=== PATIENT | male | born 2000 | race Caucasian/White ===

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

== ENCOUNTER 2021-12-17 22:55 | Emergency (ER) | payer MEDICAID ==
[~2021-12-17] VITALS: Ht 185.4 cm; Wt 84.3 kg
--- NOTE | 2021-12-18 00:08 | ED Lower Extremity ---
General Chief Complaint: Lower Extremity Stated Complaint: R ANKLE INJ Nursing Triage Note: PATIENT STATES THAT HE WAS DRINKING ON A ROOF AND BEGAN TO FALL SO HE DECIDED TO JUMP AND "LANDED WRONG". PT C/O OF RIGHT ANKLE PAIN AND SWELLING. Source: patient Exam Limitations: no limitations History of Present Illness Date Seen by Provider: Dec 17, 2021 Time Seen by Provider: 23:40 Initial Comments Patient to the ER by private conveyance with chief complaint of pain on the posterior portion of the medial malleolus of his right ankle after jumping off a roof while at a constitution party that he describes as getting a little out of hand. He is having pain with bearing weight but was able to get in using a broom pole. He has had work on his right foot before by Dr. Reeves, podiatry. He is not having any numbness or tingling. He has range of motion. He is not having pain in his Achilles tendon. Allergies and Home Medications Allergies Coded Allergies: No Known Drug Allergies (Unverified , 07/21/11) Patient Home Medication List Home Medication List Reviewed: Yes Hydrocodone Bit/Acetaminophen (HYDROcodone/APAP 5 MG/325 MG TAB) 1 Tab Tab, 1 TAB PO Q6H PRN for PAIN-MODERATE (5-7) Prescribed by: CHUCHO MODI on 12/09/20 0903 Review of Systems Constitutional: No chills, No fever EENTM: No ear discharge, No ear pain Respiratory: No cough, No short of breath Cardiovascular: No chest pain, No edema Gastrointestinal: No abdominal pain, No nausea, No vomiting Genitourinary: No discharge, No dysuria Musculoskeletal: No back pain, No joint pain All Other Systems Reviewed Negative Unless Noted: Yes Past Ofstaep-Drijvd-Rwtqof Hx Patient Social History Tobacco Use?: No Use of E-Cig and/or Vaping dev: No Immunizations Up To Date Tetanus Booster (TDap): Less than 5yrs PED Vaccines UTD: Yes Seasonal Allergies Seasonal Allergies: Yes Past Medical History Surgeries: No Respiratory: No Currently Using CPAP: No Currently Using BIPAP: No Cardiac: No Neurological: No Reproductive Disorders: No Sexually Transmitted Disease: No Genitourinary: No Gastrointestinal: Yes Gall Bladder Disease Musculoskeletal: No Endocrine: No HEENT: No Cancer: No Psychosocial: No Integumentary: No Blood Disorders: No Adverse Reaction/Blood Tranf: No Family Medical History No Pertinent Family Hx Physical Exam Vital Signs Vital Signs - First Documented 12/17/21 23:03 Temp 37.6 Pulse 118 Resp 22 B/P (MAP) 172/96 (121) Pulse Ox 98 O2 Delivery Room Air Capillary Refill : Less Than 3 Seconds Height, Weight, BMI Height: 6'0" Weight: 224lbs. 0oz. 101.232045yr; 24.00 BMI Method:Actual General Appearance: WD/WN, no apparent distress Neck: full range of motion, normal inspection Cardiovascular: normal peripheral pulses, regular rate, rhythm, no edema Respiratory: no respiratory distress, no accessory muscle use Ankles: left ankle non-tender, left ankle normal inspection; bilateral ankle normal range of motion; left ankle no evidence of injury; right ankle bone tenderness (Posterior portion of the lateral and medial malleolus tender to palpation. No deformity.), right ankle soft tissue tenderness, right ankle swelling (Small amount of bluish ecchymosis discoloration bilateral ankle) Feet: bilateral foot non-tender, bilateral foot normal inspection, bilateral foot normal range of motion Neurologic/Tendon: normal sensation, normal motor functions, normal tendon functions, responds to pain Neurologic/Psychiatric: alert, normal mood/affect, oriented x 3 Skin: normal color, warm/dry Progress/Results/Core Measures Results/Orders My Orders Orders - JACQUELINE FRANKEL Ankle, Right, 3 Views (12/17/21 23:07) Vital Signs/I&O 12/17/21 12/18/21 23:03 00:18 Temp 37.6 36.9 Pulse 118 89 Resp 22 20 B/P (MAP) 172/96 (121) 148/87 Pulse Ox 98 97 O2 Delivery Room Air Room Air Blood Pressure Mean: 121 Progress Progress Note : Time: 00:05 Progress Note Achilles tendon is intact and he has full range of motion of his ankle albeit painful. Crutches, elevation, ice, rest Diagnostic Imaging Diagonstic Imaging: Xray Plain Films/CT/US/NM/MRI: ankle (Right) Comments No acute osseous fracture on 3 view film [facility] [place] NAME: SITA RIZO MED REC#: [id number] PT STATUS: DEP ER : 2001 PHYSICIAN: JACQUELINE FRANKEL MD ADMIT DATE: 12/17/21/ER Signed Date of Exam:12/17/21 ANKLE, RIGHT, 3 VIEWS EXAM: ANKLE, RIGHT, 3 VIEWS INDICATION: Fall. Right ankle pain. COMPARISON: None. FINDINGS: No fracture or malalignment. Soft tissue shadows are unremarkable. IMPRESSION: Negative right ankle radiographs. Dictated by: Dictated on workstation # [id number] Dict: 12/18/21700 Trans: 12/18/21840 [facility] [id number] Interpreted by: RADHA GARCIA MD Electronically signed by: RADHA GARCIA MD 12/18/21840 Reviewed: Reviewed by Me Departure Impression Primary Impression: Right ankle sprain Qualified Codes: S93.401A - Sprain of unspecified ligament of right ankle, initial encounter Disposition: HOME, SELF-CARE Condition: Stable Departure-Patient Inst. Decision time for Depature: 00:07 Referrals: [facility] (PCP) Primary Care Physician MARGARITA REEVES DPM Patient Instructions: Ankle Sprain ED Add. Discharge Instructions: Use ice 20 minutes on every 2 hours for the first 2 to 3 days to reduce swelling and pain. Elevate your ankle while at rest. Compression with a neoprene sleeve or elastic bandage such as an Shreyas wrap will be helpful to reduce swelling and pain. Use the crutches for the first 1 to 2 weeks as necessary. You may bear weight on your right foot as tolerated Tylenol 1000 mg every 8 hours as needed for pain. Ibuprofen 800 mg every 8 hours as needed for pain. If you are having significant pain or disability in 1 to 2 weeks then make a follow-up appointment with the manager asset management. All discharge instructions reviewed with patient and/or family. Voiced understanding. Copy Copies To 1: MARGARITA REEVES DPM, TITUS J Dec 18, 2021 00:08
[2021-12-18 00:18] VITALS: BP 148/87
--- NOTE | 2021-12-18 07:04 | Diagnostic Imaging Report ---
EXAM: ANKLE, RIGHT, 3 VIEWS INDICATION: Fall. Right ankle pain. COMPARISON: None. FINDINGS: No fracture or malalignment. Soft tissue shadows are unremarkable. IMPRESSION: Negative right ankle radiographs. Dictated by: Dictated on workstation # [id number]
== END 2021-12-18 00:21 | disposition home or self-care (01) ==
LOC: EDUNIT# 22:55 → ER 22:57
DX: S93.401A Sprain of unspecified ligament of right ankle, initial encounter (principal); W13.2XXA Fall from, out of or through roof, initial encounter; Y93.39 Activity, other involving climbing, rappelling and jumping off
CPT/HCPCS: 73610